=== PATIENT | female | born 1990 | race Caucasian/White ===

== ENCOUNTER 2018-02-27 10:11 | Emergency (ER) | payer OTHER, SELFPAY ==
[2018-02-27 10:12] VITALS: BP 127/74; PULSE 83; RESP 18; TEMP 36.6; O2SAT 100; BMI 20.3
--- NOTE | 2018-02-27 10:23 | NURSING ---
NO OLD EKGS
--- NOTE | 2018-02-27 10:28 | EKG12_ITS ---
Test Reason : CP Blood Pressure : / mmHG Vent. Rate : 070 BPM Atrial Rate : 070 BPM P-R Int : 126 ms QRS Dur : 094 ms QT Int : 402 ms P-R-T Axes : -06 103 029 degrees QTc Int : 434 ms Normal sinus rhythm Rightward axis Incomplete right bundle branch block Borderline ECG Confirmed by VINCE HERNANDEZ ([id number]), video editor BHAVIN BRADFORD ([id number]) on 03/02/2018 8:38:14 AM Referred By: ZOE Confirmed By:VINCE HERNANDEZ
--- NOTE | 2018-02-27 10:44 | ED.VISSUMM ---
- ER Visit Summary Date of Service: 02/27/18 Chief Complaint: Chest pain History of Present Illness: The patient is a 27 F who states that on Thursday she developed a quarter sized area on the right anterior upper chest that was very sore when she pushed on it. Now she states the pain is present even without pushing on it and seems to radiate into her right arm. She describes it as sharp with breathing otherwise an aching sensation. No known trauma. She states she has a treated pneumonia in the spring. Non-smoker. No recent surgeries or travel. Physical Examination: Afebrile vital signs are stable Gen: Well-nourished well-developed Head: Normocephalic atraumatic Eyes: Perrl EOMI ENT: TMs clear no rhinorrhea moist mucous membranes Neck: Supple no lymphadenopathy no JVD nontender CVS: Regular rate rhythm no murmurs normal S1-S2 Respiratory: No distress clear to auscultation bilaterally right anterior chest wall tenderness along the costochondral border Back: Nontender Extremity: Nontender no edema Skin: Normal color no rash Neuro: alert orientated ?3 CN II-XII intact normal strength sensation reflexes gait cerebellar Psych: Normal affect normal mood Test Results: EKG obtained shows a sinus rhythm at a rate of 70 with an incomplete right bundle jesse block. CBC BMP troponin d-dimer negative. HCG negative. Chest x-ray no acute findings. Emergency Department Course and Treatment: Toradol here. I believe this to be costochondritis and will continue anti-inflammatories at home. Return if worsening or concerns. Impression: 1. Costochondritis This note was generated with [employer] dictation software. It may contain incorrect words, spelling, and punctuation that were not noted in review of the chart prior to signing ED Disposition - Plan for ED Patient: Disposition: Home or Assisted Living Chief Complaint: Chest Pain Instructions: ED Chest Pain Costochondritis Prescriptions: Ketorolac [Toradol] 10 mg PO TID PRN PRN #15 tab PRN Reason: Pain Referrals: Chapo Pineda DO [Primary Care Provider] - 1 Week if not improving
--- NOTE | 2018-02-27 10:47 | ED.DCSUM_ITS ---
- ER Visit Summary Date of Service: 02/27/18 Chief Complaint: Chest pain History of Present Illness: The patient is a 27 F who states that on Thursday she developed a quarter sized area on the right anterior upper chest that was very sore when she pushed on it. Now she states the pain is present even with out pushing on it and seems to radiate into her right arm. She describes it as sharp with breathing otherwise an aching sensation. No known trauma. She states she has a treated pneumonia in the spring. Non-smoker. No recent surgeries or travel. Physical Examination: Afebrile vital signs are stable Gen: Well-nourished well-developed Head: Normocephalic atraumatic Eyes: Perrl EOMI ENT: TMs clear no rhinorrhea moist mucous membranes Neck: Supple no lymphadenopathy no JVD nontender CVS: Regular rate rhythm no murmurs normal S1-S2 Respiratory: No distress clear to auscultation bilaterally right anterior chest wall tenderness along the costochondral border Back: Nontender Extremity: Nontender no edema Skin: Normal color no rash Neuro: alert orientated ?3 CN II-XII intact normal strength sensation reflexes gait cerebellar Psych: Normal affect normal mood Test Results: EKG obtained shows a sinus rhythm at a rate of 70 with an incomplete right bundle jesse block. CBC BMP troponin d-dimer negative. HCG negative. Chest x-ray no acute findings. Emergency Department Course and Treatment: Toradol here. I believe this to be costochondritis and will continue anti-inflammatories at home. Return if worsening or concerns. Impression: 1. Costochondritis This note was generated with [employer] dictation software. It may contain incorrect words, spelling, and punctuation that were not noted in review of the chart prior to signing ED Disposition - Plan for ED Patient: Disposition: Home or Assisted Living Chief Complaint: Chest Pain Instructions: ED Chest Pain Costochondritis Prescriptions: Ketorolac [Toradol] 10 mg PO TID PRN PRN #15 tab PRN Reason: Pain Referrals: Chapo Pineda DO [Primary Care Provider] - 1 Week if not improving
[2018-02-27] MEDS: Ketorolac 15 MG/ML Vial IV (10:49)
--- NOTE | 2018-02-27 10:55 | RAD_ITS ---
STUDY: X-RAY CHEST REASON FOR EXAM: Female, 27 years old. Chest pain. TECHNIQUE: PA and lateral views of the chest. COMPARISON: Prior comparison studies are not available for review at this time. FINDINGS: The lungs are clear and expanded. There is no demonstrated pleural abnormality. Normal size heart. Normal mediastinum and remedios. Normal visualized pulmonary arteries. Normal visualized aortic arch and descending thoracic aorta. Normal visualized thoracic spine. Normal visualized ribs, clavicles, and shoulders. There is pectus carinatum of the sternum. There is no demonstrated abnormality of the visualized soft tissue structures of the upper abdomen. RAD/Chest PA and Lateral IMPRESSION: Normal x-ray examination of the chest. Electronically Signed: Elieser Couch MD at 11:14 EDT Tel , Service support ,
[2018-02-27 11:07] LABS: Absolute Lymphocyte Count 1.45 X10^3/ul (0.83-4.51); Absolute Neutrophil Count 3.3 X10^3/uL (2.0-7.7); Basophil# 0.03 X10^3/uL; Basophil% 0.6 % (0-1); Eosinophil# 0.16 X10^3/uL; Hematocrit 35.6 % (37-47); Hemoglobin 11.7 g/dl (12.0-15.0); Lymphocyte # 1.45 X10^3/ul (4.0); Lymphocyte % 26.8 % (19-41); Mean Corp Hgb Conc 32.9 g/gl (32-36); Mean Corpuscular Hgb 28.7 pg (27.0-32.0); Mean Corpuscular Volume 87.5 fL (81-99); Mean Platelet Vol. 9.2 fl (6.2-12.0); Monocyte# 0.45 X10^3/uL; Monocyte% 8.3 % (0-10); Neutrophil # 3.32 X10^3/uL (2.7-7.7); Neutrophil % 61.1 % (47-70); Platelet Count 193 K/mm3 (150-450); RBC Distribution Width CV 12.4 % (11.6-14.6); RBC Distribution Width SD 38.8 fl (35.1-43.9); Red Blood Count 4.07 M/mm3 (4.2-5.4); White Blood Count 5.4 K/mm3 (4.4-11.0)
[2018-02-27 11:08] LABS: POSITIVE COUNT NO; POSITIVE DIFFERENTIAL NO; POSITIVE MORPHOLOGY NO
[2018-02-27 11:16] LABS: Anion Gap 7 (5-15); BUN 19 mg/dL (7-18); BUN/Creat Ratio 29.4 RATIO (10-20); Calcium,Total 8.3 mg/dL (8.5-10.1); Chloride 109 mmol/L (98-107); Creatinine, Serum 0.65 mg/dL (0.55-1.02); EST Glomerular Filtration Rate 116 mL/min (>60); Est Glom Filt Rate - Afr Amer 140 mL/min (>60); Estimated Creatinine Clearance 106.11 ml/min; Glucose 83 mg/dL (74-106); Potassium 3.7 mmol/L (3.5-5.1); Sodium Level 141 mmol/L (136-145)
[2018-02-27 11:18] LABS: D-Dimer Quantitative (DVT/PE) < 0.27 FEU/ug/m (0.27-0.49)
[2018-02-27 11:19] LABS: Pregnancy, Serum, hCG Quali. NEGATIVE Negative (0-9 Nonpreg)
[2018-02-27 11:27] VITALS: PULSE 69; RESP 15; O2SAT 97
== END 2018-02-27 12:22 | disposition home or self-care (01) ==
PROVIDERS: Emergency Provider Emergency Medicine; Family Provider Family Medicine; PCP Family Medicine
DX: M94.0 Chondrocostal junction syndrome [Tietze] (principal); I45.10 Unspecified right bundle-branch block; Z87.01 Personal history of pneumonia (recurrent)
CPT/HCPCS: 71046; 80048; 84484; 84703; 85025; 85379; 93005; 96374; 99285; A4216

== ENCOUNTER → 2018-07-06 16:20 | Outpatient (CLI) | payer OTHER, SELFPAY ==
[2018-04-29 17:44] VITALS: BMI 20.3
[2018-07-06 17:25] LABS: Thyroid Stim Hormone (TSH) 1.31 uIU/mL (0.358-3.74)
== END ==
PROVIDERS: Family Provider Family Medicine; PCP Family Medicine; Referring Provider Nurse Practitioner Family; Visit Provider Nurse Practitioner Family
DX: R63.5 Abnormal weight gain (principal)
CPT/HCPCS: 36415; 84443

== ENCOUNTER → 2018-08-20 | Outpatient (CLI) | payer OTHER, SELFPAY ==
[2018-07-07 11:50] VITALS: BMI 20.3
--- NOTE | 2018-08-20 13:49 | CT_ITS ---
STUDY: CT ABDOMEN AND PELVIS WITH AND WITHOUT CONTRAST REASON FOR EXAM: Female, 28 years old. Microhematuria. RADIATION DOSAGE (If Supplied By Facility): CTDIvol = ( 9.50 ) mGy, DLP = ( 540.07 ) mGycm TECHNIQUE: Transaxial images were obtained from the dome of the diaphragm to the symphysis pubis without oral contrast. 100mL IV Isovue 300 was administered. Sagittal and coronal images were reconstructed. Individualized dose optimization techniques were used for this CT. COMPARISON: None. FINDINGS: The visualized lung bases are unremarkable. The visualized portions of the heart are within normal limits. Normal liver. Normal gallbladder and extrahepatic biliary system. Normal spleen. Normal pancreas. Normal bilateral adrenal glands. Normal right kidney. Normal left kidney. Normal visualized stomach. Normal small intestine. Normal colon. There is non-visualization of the appendix. Normal abdominal aorta. Normal inferior vena cava. Normal retroperitoneum. Normal urinary bladder. Normal visualized uterus. No free fluid in the abdomen or pelvis. There is a small umbilical hernia containing fat. Normal osseous structures. CT/CT Abd/Pelvis W/WO Contrast IMPRESSION: Normal unenhanced and enhanced CT of the abdomen and pelvis. Electronically Signed: Dante Solano MD at 10:28 EDT , Service support ,
== END | disposition home or self-care (01) ==
LOC: CT 13:47
PROVIDERS: Family Provider Family Medicine; PCP Family Medicine; Referring Provider Urology; Visit Provider Urology
DX: R31.29 Other microscopic hematuria (principal)
CPT/HCPCS: 74178; Q9967

== ENCOUNTER 2018-10-28 14:14 | Emergency (ER) | payer OTHER, SELFPAY ==
[2018-07-07 11:50] VITALS: BMI 20.3
[2018-10-28 14:15] VITALS: BP 125/74; PULSE 99; RESP 14; TEMP 36.9; O2SAT 98; BMI 21.4
[2018-10-28 14:20] VITALS: BP 125/74; PULSE 99; RESP 14; TEMP 36.9; O2SAT 98
--- NOTE | 2018-10-28 15:18 | CT_ITS ---
STUDY: CT BRAIN WITH AND WITHOUT CONTRAST REASON FOR EXAM: Female, 28 years old. Occipital headache for 2 months RADIATION DOSAGE (If Supplied By Facility): CTDIvol = ( 44.99 ) mGy, DLP = ( 1479.73 ) mGycm TECHNIQUE: Transaxial CT imaging of the brain was performed pre and post contrast administration. The examination was performed with intravenous administration of 50cc IV Isovue 370. Individualized dose optimization techniques were used for this CT. COMPARISON: None. FINDINGS: Normal soft tissue structures. Normal calvarium. Normal size ventricles and extra-axial spaces for the patient's age. Normal white matter tracts of the cerebral hemispheres. Normal basal ganglia and thalami. Normal brainstem. Normal cerebellum. There is no intracranial hemorrhage. There are no findings of an acute ischemic infarction. Normal visualized paranasal sinuses. CT/Brain/Head W/WO Contrast IMPRESSION: Normal unenhanced and enhanced CT scan of the brain. Electronically Signed: Bar Mota MD at 16:29 EDT , Service support ,
--- NOTE | 2018-10-28 15:20 | ED.VIS.HA ---
History of Present Illness Chief Complaint: Weakness Informant: Patient, Family Onset: Month(s) - 2 Context: Gradual, Onset Timing: Continuous, Waxes and wanes Quality: Negative for: Similar Prior Headaches Location: occipital w/ occasional discomfort in right high parietal area Current Severity: Moderate Maximum Severity: Severe Worsened by: nothing in particular Relieved by: nothing Associated Symptoms: Nausea, Sinus Pressure. Negative for: Fever, Vomiting, Sore Throat, Numbness, Tingling, Visual Changes, Blurred Vision, Photophobia, Visual Loss Injury: - - none Narrative: Patient started having headaches 2 months ago, no thunderclap's, everything gradual in onset. Headache is not gone away, but it does wax and wane. She states in the beginning she was having significant sinus congestion along with trouble breathing through her nose, and ear symptoms. She was put on an antibiotic and that improved but the headaches never went away. Gradually at some point after that, she developed vertiginous symptoms, she states when walking she is off balance, and when standing often she would feel a sensation of movement. Occasionally she gets very nauseated but she has not been vomiting. She saw her PCP 3 days ago who put her on Augmentin and told her to come back if it was not worse and they would do a CT scan. The next day she started having neck stiffness, her headache and neck felt worse today although she states this is not the worst her head is ever felt, it has been waxing and waning for the last couple months. She denies any injuries or obvious events coinciding with the onset. No known tick bites. No rashes. Prior similar symptoms: No Past Medical History - Allergies and Home Meds Allergies/Adverse Reactions: Allergies egg Allergy (Verified 10/28/18 14:18) Swelling honey Allergy (Verified 10/28/18 14:18) Swelling ibuprofen [From Motrin] Allergy (Verified 10/28/18 14:18) Hives brittny Primary Care Physician: Dilcia Fagan MD [Primary Care Provider] - Past Medical History: None Surgical History: no surgical history Lives: With Family Smoking Status: Never smoker Drugs: None - no hx IVDU - Family History family Family History: Family History (Last Reviewed 07/07/18 @ 11:50 by Xiomy Gooden) Other Cancer Heart disease Thyroid disorder Family History: Reports: - - no known hx of cerebral aneurysms Review of Systems General: Reports: - - no excessive fatigue. Denies: Chills, Fever, Sweats Eyes: Denies: Visual changes - bilaterally, Diplopia ENT: Reports: - - feels ears popping often. Denies: Rhinorrhea, Sore throat Cardiovascular: Denies: Chest pain, Palpitations Respiratory: Denies: Dyspnea, Cough, Dyspnea on exertion Gastrointestinal: Reports: Nausea. Denies: Abdominal pain, Vomiting, Diarrhea, Constipation, Melena, Hematochezia Genitourinary: Denies: Dysuria, Hematuria, Frequency Musculoskeletal: Reports: Neck pain - posterior sharp, mostly feels stiff. Denies: Myalgias, Arthralgias, Back pain, Swelling, Extremity Pain Skin: Denies: Rash, Abscess, Wounds Neurological: Reports: - - Arms and legs feel heavy today. Denies: Headache, Weakness, Parasthesia, Numbness Endocrine: Denies: Polyuria, Polydipsia, Heat intolerance, Cold intolerance Hematologic: Reports: Lymphadenopathy - my doctor said 3d ago that there was an enlarged lymph node somewhere in my neck Allergy: Denies: Uticaria, Swelling of the mouth, Swelling of the tongue Physical Exam Vital Signs/Narrative: Vital Signs Temp Pulse Resp BP Pulse Ox 10/28/18 14:20 98.5 F 99 14 125/74 H 98 10/28/18 14:15 98.5 F 99 14 125/74 H 98 Inital Vital Signs reviewed: Yes General: Well nourished, Well developed Head: NC, AT Eyes: Perrl - no photophobia, EOMI. Negative for: Scleral icterus ENT: Moist mucous membranes, No rhinorrhea, TM's clear. Negative for: Nasal congestion, Sinus tenderness Neck: Supple - w/ FROM, No Lymphadenopathy, No JVD, Nontender, No Meningismus Cardiovascular: Regular rate, Regular rhythm, No murmurs, Normal S1, Normal S2. Negative for: Tachycardia Respiratory: No distress, CTA bilaterally, Chest nontender Abdomen: Soft, Nontender, Nondistended, Normal bowel sounds. Negative for: Hepatomegaly, Splenomegaly Back: Nontender, Normal Inspection. Negative for: CVA tenderness Extremities: Nontender, No edema. Negative for: Calf Tenderness Skin: Normal color, No rash, No Trauma Neuro: Alert, Oriented x3, Cranial nerves II-XII grossly intact, Normal Strength, Normal Sensation, Normal DTR - x all 4 ext's, no clonus, toes downgoing bilat; no asymmetry., Normal Gait, - - Symptoms with Anastasiya-Hallpike maneuver only to left, not to right. No nystagmus with either and not at rest. Psychological: Normal affect, Normal Mood Diagnostic/Tx/Re-eval Impressions Brain CT 10/28/18 15:18 IMPRESSION: Normal unenhanced and enhanced CT scan of the brain. Electronically Signed: Bar Mota MD at 16:29 EDT , Service support , 10/28/18 15:18 CT Head [Brain/Head W/WO Contrast] [CT] Stat Laboratory Results 10/28/18 10/28/18 10/28/18 14:42 14:42 14:42 WBC 6.3 RBC 4.77 Hgb 13.5 Hct 40.1 MCV 84.1 MCH 28.3 MCHC 33.7 RDW 12.6 RDW Differential 38.4 Plt Count 234 MPV 9.8 Immature Gran % (Auto) 0.200 Neut % (Auto) 72.0 H Lymph % (Auto) 22.9 Cassia % (Auto) 4.0 Eos % (Auto) 0.6 Baso % (Auto) 0.3 Absolute Neuts (auto) 4.6 Absolute Lymphs (auto) 1.45 Total Counted Not Reportable Sodium 141 Potassium 4.5 Chloride 105 Carbon Dioxide 29.0 Anion Gap 7 BUN 17 Creatinine 0.85 Estim Creat Clear Calc 80.78 Est GFR (MDRD) Af Amer 102 Est GFR (MDRD) Non-Af 84 BUN/Creatinine Ratio 20.1 H Glucose 102 Calcium 9.5 Total Bilirubin 0.30 AST 20 ALT 17 Alkaline Phosphatase 45 Total Protein 8.1 Albumin 4.6 Globulin 3.5 Albumin/Globulin Ratio 1.3 Monoscreen Negative - Medical Decision Making Patient does not usually get headaches. I have no problem obtaining CT imaging, that was done with and without contrast, and was all normal. She is reassured. At this point, I do not think she needs the Augmentin, but I will empirically treat her with a course of doxycycline in case she has a few symptoms of a rickettsial infectious disease such as [place] spotted fever which has been documented as being present in [place] as well as Lyme disease. I think the chances of either 1 of these are relatively low but I do not think it is unreasonable to treat her empirically to see if it helps. She should follow-up. We discussed at length the likelihood that her vertigo is peripheral in nature, and the unlikelihood of acute infectious meningitis, and reasons why I do not recommend an emergent lumbar puncture at this time. She and family are comfortable with that and the overall plan and will follow-up. ED Disposition - Plan for ED Patient: Disposition: Home or Assisted Living Diagnosis: Cephalgia, Peripheral vertigo involving left ear Instructions: WEAKNESS, Unk Cause, HEADACHE, Unspecified, VERTIGO, Unspecified Prescriptions: Doxycycline Hyclate 1 cap PO BID #20 cap Transmission Status: Pending to [facility] Meclizine HCl 25 mg PO Q8H PRN #16 tab PRN Reason: Vertigo Transmission Status: Pending to [facility] Referrals: Dilcia Fagan MD [Primary Care Provider] - 3-5 Days Additional Instructions: DISCONTINUE AUGMENTIN. Take new prescription antibiotic instead.
[2018-10-28 15:31] VITALS: BP 114/70; PULSE 70; RESP 15; TEMP 36.9; O2SAT 97
[2018-10-28] MEDS: Metoclopramide 10 MG/2 ML Vial 5 MG IV (15:32)
[2018-10-28 15:38] LABS: Internal QC Validated? YES +Cl - CLEAR BKGD; Monotest Negative (Negative)
[2018-10-28 15:39] LABS: ALB/GLOB Ratio 1.3 RATIO (0.9-2.4); AST(SGOT) 20 U/L (15-37); Alanine Aminotransfer ALT/SGPT 17 U/L (13-56); Albumin, Serum 4.6 g/dL (3.2-5.0); Alkaline Phosphatase 45 U/L (45-117); Anion Gap 7 (5-15); BUN 17 mg/dL (7-18); BUN/Creat Ratio 20.1 RATIO (10-20); Calcium,Total 9.5 mg/dL (8.5-10.1); Chloride 105 mmol/L (98-107); Creatinine, Serum 0.85 mg/dL (0.55-1.02); EST Glomerular Filtration Rate 84 mL/min (>60); Est Glom Filt Rate - Afr Amer 102 mL/min (>60); Estimated Creatinine Clearance 80.78 ml/min; Globulin 3.5 g/dL (2.2-4.2); Glucose 102 mg/dL (74-106); Potassium 4.5 mmol/L (3.5-5.1); Protein, Total 8.1 g/dL (6.4-8.2); Sodium Level 141 mmol/L (136-145)
[2018-10-28 15:46] LABS: Absolute Lymphocyte Count 1.45 X10^3/ul (0.83-4.51); Absolute Neutrophil Count 4.6 X10^3/uL (2.0-7.7); Basophil# 0.02 X10^3/uL; Basophil% 0.3 % (0-1); Eosinophil# 0.04 X10^3/uL; Eosinophils% 0.6 % (0-5); Hematocrit 40.1 % (37-47); Hemoglobin 13.5 g/dl (12.0-15.0); Lymphocyte # 1.45 X10^3/ul (4.0); Lymphocyte % 22.9 % (19-41); Mean Corp Hgb Conc 33.7 g/gl (32-36); Mean Corpuscular Hgb 28.3 pg (27.0-32.0); Mean Corpuscular Volume 84.1 fL (81-99); Mean Platelet Vol. 9.8 fl (6.2-12.0); Monocyte# 0.25 X10^3/uL; Neutrophil # 4.55 X10^3/uL (2.7-7.7); Platelet Count 234 K/mm3 (150-450); RBC Distribution Width CV 12.6 % (11.6-14.6); RBC Distribution Width SD 38.4 fl (35.1-43.9); Red Blood Count 4.77 M/mm3 (4.2-5.4); White Blood Count 6.3 K/mm3 (4.4-11.0)
[2018-10-28 15:47] LABS: POSITIVE COUNT NO; POSITIVE DIFFERENTIAL NO; POSITIVE MORPHOLOGY NO
--- NOTE | 2018-10-28 16:10 | ED.RN ---
sepsis screen complete per dr. mack verbal order.
[2018-10-28 17:47] VITALS: BP 110/66; PULSE 70; RESP 15; O2SAT 97
== END 2018-10-28 17:48 | disposition home or self-care (01) ==
PROVIDERS: Emergency Provider Emergency Medicine; Family Provider Family Medicine; PCP Family Medicine
DX: R51 Headache (principal); H81.392 Other peripheral vertigo, left ear; R11.0 Nausea
CPT/HCPCS: 70470; 80053; 85025; 86308; 96361; 96374; 99284; J7030; Q9967; A4216

== ENCOUNTER → 2019-02-09 08:31 | Outpatient (CLI) | payer OTHER, SELFPAY ==
[2019-02-09 08:37] LABS: Bacteria 0 SEEN /hpf (None Seen); Mucous, Urine 0 SEEN /hpf (<or=2+); Red Blood Cells-Urine 0 SEEN /hpf (0-5); White Blood Cells 0 SEEN /hpf (0-5)
[2019-02-09 08:49] LABS: Color, Urine Yellow (Yellow); Glucose, Dipstick Normal (Normal); Ketone-Dipstick Negative (Negative); Leukocyte Esterase-Dipstick Negative /ul (Negative); Nitrite-Dipstick Negative (Negative); Occult Blood-Urine Negative /ul (Negative); Protein-Dipstick Negative (Negative); Urine Bilirubin Dipstick Negative (Negative); Urine Clarity Sl. Cloudy (Clear); Urine Urobilinogen Normal (Normal)
[2019-02-09 08:55] LABS: Squamous Epithelial Cells - UA 0-5 SEEN /hpf (5-10)
== END ==
PROVIDERS: Family Provider Family Medicine; PCP Family Medicine; Referring Provider Nurse Practitioner Family; Visit Provider Nurse Practitioner Family
DX: R30.0 Dysuria (principal)
CPT/HCPCS: 81001

== ENCOUNTER → 2019-02-11 15:36 | Outpatient (CLI) | payer OTHER, SELFPAY ==
[2019-02-11 18:12] LABS: Thyroid Stim Hormone (TSH) 0.77 uIU/mL (0.358-3.74)
== END ==
PROVIDERS: Family Provider Family Medicine; PCP Family Medicine; Visit Provider Family Medicine
DX: R00.2 Palpitations (principal)
CPT/HCPCS: 36415; 84443

== ENCOUNTER → 2019-02-17 13:02 | Outpatient (CLI) | payer OTHER, SELFPAY ==
[2019-02-17 14:15] LABS: Color, Urine Yellow (Yellow); Glucose, Dipstick Normal (Normal); Ketone-Dipstick Negative (Negative); Leukocyte Esterase-Dipstick Negative /ul (Negative); Nitrite-Dipstick Negative (Negative); Occult Blood-Urine 10 /ul (Negative); Protein-Dipstick Negative (Negative); Urine Bilirubin Dipstick Negative (Negative); Urine Clarity Clear (Clear); Urine Urobilinogen Normal (Normal)
== END ==
PROVIDERS: Family Provider Family Medicine; PCP Family Medicine; Referring Provider Obstetrics & Gynecology; Visit Provider Obstetrics & Gynecology
DX: R35.0 Frequency of micturition (principal)
CPT/HCPCS: 81002; 87086; 87088

== ENCOUNTER → 2019-03-16 08:46 | Outpatient (CLI) | payer OTHER, SELFPAY ==
--- NOTE | 2019-03-16 08:50 | RAD_ITS ---
STUDY: X-RAY - LUMBAR SPINE REASON FOR EXAM: Female, 28 years old. Pain, no history of injury. TECHNIQUE: 5 view(s) of the lumbar spine were obtained. COMPARISON: None FINDINGS: Normal lumbar lordosis. There is no substantial scoliosis. There is a normal alignment of the vertebrae. Normal vertebral bodies and endplates. Normal disc space heights. There is no demonstrated fracture. There is no demonstrated spondylolysis of the pars interarticulares. The soft tissue structures are unremarkable. RAD/L/S Spine Min 4 Views IMPRESSION: Normal x-ray examination of the lumbar spine. Electronically Signed: Maida Arguello MD at 0:28 EST , Service support ,
[2019-03-16 08:52] LABS: Lyme Ab Screen Interpretation REF LAB
[2019-03-16 10:35] LABS: Erythrocyte Sedimentation Rate 1 mm/hr (0-20)
[2019-03-16 10:44] LABS: Absolute Lymphocyte Count 1.34 X10^3/uL (0.83-4.51); Absolute Neutrophil Count 3.4 X10^3/uL (2.0-7.7); Basophil# 0.03 X10^3/uL; Basophil% 0.6 % (0-1); Eosinophil# 0.09 X10^3/uL; Eosinophils% 1.7 % (0-5); Hematocrit 41.2 % (37-47); Hemoglobin 13.3 g/dL (12.0-15.0); Lymphocyte # 1.34 X10^3/ul (4.0); Lymphocyte % 25.5 % (19-41); Mean Corp Hgb Conc 32.3 g/dL (32-36); Mean Corpuscular Hgb 28.1 pg (27.0-32.0); Mean Corpuscular Volume 86.9 fL (81-99); Mean Platelet Vol. 9.6 fl (6.2-12.0); Monocyte# 0.37 X10^3/uL; NRBC Flagged by Analyzer 0 % (0-5); Neutrophil # 3.42 X10^3/uL (2.7-7.7); Platelet Count 251 K/mm3 (150-450); RBC Distribution Width CV 12.2 % (11.6-14.6); RBC Distribution Width SD 38.6 fl (35.1-43.9); Red Blood Count 4.74 M/mm3 (4.2-5.4); White Blood Count 5.3 K/mm3 (4.4-11.0)
[2019-03-16 10:54] LABS: ALB/GLOB Ratio 1.2 RATIO (0.9-2.4); AST(SGOT) 17 U/L (15-37); Alanine Aminotransfer ALT/SGPT 18 U/L (13-56); Albumin, Serum 4.2 g/dL (3.2-5.0); Alkaline Phosphatase 40 U/L (45-117); Anion Gap 7 (5-15); BUN 16 mg/dL (7-18); BUN/Creat Ratio 20.6 RATIO (10-20); CRP < 2.90 mg/L (0.0-3.0); Calcium,Total 8.7 mg/dL (8.5-10.1); Chloride 107 mmol/L (98-107); Creatinine, Serum 0.78 mg/dL (0.55-1.02); EST Glomerular Filtration Rate 93 mL/min (>60); Est Glom Filt Rate - Afr Amer 113 mL/min (>60); Ferritin 28 ng/mL (8-252); Free T3 3.3 pg/mL (2.18-3.98); Globulin 3.6 g/dL (2.2-4.2); Glucose 88 mg/dL (74-106); Iron 105 ug/dL (50-170); Magnesium 2.4 mg/dL (1.6-2.6); Potassium 3.7 mmol/L (3.5-5.1); Protein, Total 7.8 g/dL (6.4-8.2); Sodium Level 140 mmol/L (136-145); T4 Free Direct 1.01 ng/dL (0.76-1.46); Uric Acid 3.7 mg/dL (2.6-6.0)
[2019-03-16 13:47] LABS: Vitamin B12 1276 pg/mL (211-911); Vitamin D,25 Hydroxy 33.1 ng/mL (29.95-100.01)
[2019-03-17 18:51] LABS: ANTINUCLEAR ANTIBODIES DIRECT Negative (Negative)
[2019-03-21 20:43] LABS: HLA B27 Negative (.); Lyme Scn Total Ab w/Rflx <0.91 ISR (0.00-0.90)
== END ==
PROVIDERS: Family Provider Family Medicine; PCP Family Medicine; Referring Provider Family Medicine; Visit Provider Family Medicine
DX: M54.9 Dorsalgia, unspecified (principal); R53.83 Other fatigue; M25.50 Pain in unspecified joint; R00.2 Palpitations
CPT/HCPCS: 36415; 72110; 80053; 81374; 82306; 82607; 82728; 83540; 83735; 84439; 84443; 84481; 84550; 85025; 85652; 86038; 86140; 86618

== ENCOUNTER → 2019-04-13 06:57 | Outpatient (CLI) | payer OTHER, SELFPAY | PROVIDERS: Family Provider Family Medicine; PCP Family Medicine; Referring Provider Family Medicine; Visit Provider Family Medicine | DX: R53.83 Other fatigue (principal) | CPT/HCPCS: 36415; 82533 ==

== ENCOUNTER → 2019-05-14 09:21 | Outpatient (CLI) | payer OTHER, SELFPAY ==
[2019-05-10 15:44] VITALS: BMI 22.0
[2019-05-19 16:11] LABS: Cortisol, Free 24Ur 13 ug/24 hr (6-42); Cortisol, Urinary Free 9 ug/L (Undefined)
== END ==
PROVIDERS: Family Provider Family Medicine; PCP Family Medicine; Referring Provider Internal Medicine Endocrinology, Diabetes & Metabolism; Visit Provider Internal Medicine Endocrinology, Diabetes & Metabolism
DX: E24.9 Cushing's syndrome, unspecified (principal)
CPT/HCPCS: 81050; 82530

== ENCOUNTER → 2019-06-01 15:47 | Outpatient (CLI) | payer OTHER, SELFPAY ==
[2019-05-27 09:24] VITALS: BMI 22.0
--- NOTE | 2019-06-01 15:51 | RAD_ITS ---
STUDY: X-RAY - LEFT KNEE REASON FOR EXAM: Female, 28 years old. PAIN X4 MONTHS, NKI TECHNIQUE: 4 view(s) of the knee. COMPARISON: None. FINDINGS: Normal visualized distal femur. Normal visualized proximal tibia and fibula. Normal proximal tibiofibular articulation. There is no demonstrated fracture. Normal medial femorotibial compartment. Normal lateral femorotibial compartment. Normal patellofemoral articulation. There is no demonstrated joint effusion. The soft tissue structures are unremarkable. RAD/Knee 4 or More Views IMPRESSION: Normal x-ray examination of the knee. Electronically Signed: Callum Lambert MD at 21:56 EST , Service support ,
--- NOTE | 2019-06-01 15:51 | RAD_ITS ---
STUDY: X-RAY - RIGHT KNEE REASON FOR EXAM: Female, 28 years old. PAIN X4 MONTHS, NKI TECHNIQUE: 4 view(s) of the knee. COMPARISON: None. FINDINGS: Normal visualized distal femur. Normal visualized proximal tibia and fibula. Normal proximal tibiofibular articulation. There is no demonstrated fracture. Normal medial femorotibial compartment. Normal lateral femorotibial compartment. Normal patellofemoral articulation. There is no demonstrated joint effusion. The soft tissue structures are unremarkable. RAD/Knee 4 or More Views IMPRESSION: Normal x-ray examination of the knee. Electronically Signed: Callum Lambert MD at 21:57 EST , Service support ,
== END ==
PROVIDERS: PCP Family Medicine; Referring Provider Family Medicine; Visit Provider Family Medicine
DX: M25.561 Pain in right knee (principal); M25.562 Pain in left knee
CPT/HCPCS: 73564

== ENCOUNTER → 2019-06-03 15:33 | Outpatient (CLI) | payer OTHER, SELFPAY ==
[2019-05-27 09:24] VITALS: BMI 22.0
[2019-06-03 17:10] LABS: Vitamin B12 572 pg/mL (211-911)
[2019-06-06 20:08] LABS: Endomysial Antibody IgA Negative (Negative)
[2019-06-06 21:08] LABS: Deamidated Gliadin IgA 4 units (0-19); Deamidated Gliadin IgG 2 units (0-19); Immunoglobulin A 261 mg/dL (87-352); t-Transglutaminase IgA <2 U/mL (0-3)
[2019-06-07 20:07] LABS: Beef <0.10 kU/L (Class 0); Corn <0.10 kU/L (Class 0); Egg, Whole 1.12 kU/L (Class II); Milk (Cow) <0.10 kU/L (Class 0); Peanut <0.10 kU/L (Class 0); Pork <0.10 kU/L (Class 0); Soybean <0.10 kU/L (Class 0); Wheat <0.10 kU/L (Class 0)
[2019-06-08 14:01] LABS: Chocolate <0.10 kU/L (Class 0)
== END ==
PROVIDERS: PCP Family Medicine; Referring Provider Family Medicine; Visit Provider Family Medicine
DX: R53.83 Other fatigue (principal)
CPT/HCPCS: 36415; 82607; 82784; 83516; 86003; 86005; 86255

== ENCOUNTER → 2019-06-30 14:17 | Outpatient (CLI) | payer OTHER, SELFPAY ==
[2019-05-27 09:24] VITALS: BMI 22.0
[2019-06-30 16:20] LABS: Absolute Lymphocyte Count 1.29 X10^3/uL (0.83-4.51); Absolute Neutrophil Count 2.5 X10^3/uL (2.0-7.7); Basophil# 0.02 X10^3/uL; Basophil% 0.5 % (0-1); Eosinophil# 0.06 X10^3/uL; Eosinophils% 1.4 % (0-5); Hematocrit 38.3 % (37-47); Hemoglobin 12.3 g/dL (12.0-15.0); Lymphocyte # 1.29 X10^3/ul (4.0); Lymphocyte % 30.4 % (19-41); Mean Corp Hgb Conc 32.1 g/dL (32-36); Mean Corpuscular Hgb 27.8 pg (27.0-32.0); Mean Corpuscular Volume 86.5 fL (81-99); Mean Platelet Vol. 9.9 fl (6.2-12.0); Monocyte# 0.37 X10^3/uL; Monocyte% 8.7 % (0-10); NRBC Flagged by Analyzer 0 % (0-5); Neutrophil % 58.8 % (47-70); Platelet Count 247 K/mm3 (150-450); RBC Distribution Width CV 12.4 % (11.6-14.6); Red Blood Count 4.43 M/mm3 (4.2-5.4); White Blood Count 4.3 K/mm3 (4.4-11.0)
[2019-06-30 16:24] LABS: Erythrocyte Sedimentation Rate 3 mm/hr (0-20)
[2019-06-30 16:28] LABS: ALB/GLOB Ratio 1.3 RATIO (0.9-2.4); AST(SGOT) 18 U/L (15-37); Alanine Aminotransfer ALT/SGPT 18 U/L (13-56); Albumin, Serum 4.2 g/dL (3.2-5.0); Alkaline Phosphatase 43 U/L (45-117); Anion Gap 4 (5-15); BUN 18 mg/dL (7-18); CRP < 2.90 mg/L (0.0-3.0); Calcium,Total 8.6 mg/dL (8.5-10.1); Chloride 108 mmol/L (98-107); Creatinine, Serum 0.72 mg/dL (0.55-1.02); EST Glomerular Filtration Rate 101 mL/min (>60); Est Glom Filt Rate - Afr Amer 122 mL/min (>60); Globulin 3.3 g/dL (2.2-4.2); Glucose 79 mg/dL (74-106); Potassium 3.9 mmol/L (3.5-5.1); Protein, Total 7.5 g/dL (6.4-8.2); Sodium Level 140 mmol/L (136-145)
== END ==
PROVIDERS: PCP Family Medicine; Referring Provider Family Medicine; Visit Provider Family Medicine
DX: R10.9 Unspecified abdominal pain (principal)
CPT/HCPCS: 36415; 80053; 85025; 85652; 86140

== ENCOUNTER → 2019-08-24 08:54 | Outpatient (CLI) | payer OTHER, SELFPAY ==
[2019-05-27 09:24] VITALS: BMI 22.0
--- NOTE | 2019-08-24 10:23 | NEURO ---
NCS and/or EMG Patient Report Ordering Doctor: Peterson Corado DATE OF SERVICE: 08/24/19 Hattie Contreras is a 29-year-old female presents for electrodiagnostic testing of the lower limbs. She reports of weakness around the knees. She denies any numbness or tingling. Electrodiagnostic findings: Peroneal motor nerve demonstrates normal distal latency, amplitude and conduction velocity bilaterally. Normal tibial motor response bilaterally. Normal tibial and peroneal F waves. H reflex within normal limits. Sensory responses are normal. On needle EMG, all muscles tested in the lower limb showed no evidence of denervation with normal motor unit action potentials. Electrodiagnostic impression: This is a normal electrodiagnostic study in the lower limbs. There is no electrodiagnostic evidence for peripheral neuropathy or lumbosacral radiculopathy. If there are any further questions, please do not hesitate to contact me.
== END ==
PROVIDERS: PCP Family Medicine; Referring Provider Family Medicine; Visit Provider Family Medicine
DX: G62.9 Polyneuropathy, unspecified (principal); R53.1 Weakness
CPT/HCPCS: 95886; 95912

== ENCOUNTER → 2020-02-25 09:02 | Outpatient (CLI) | payer OTHER, SELFPAY ==
[2019-05-27 09:24] VITALS: BMI 22.0
[2020-02-25 10:19] LABS: hCG Titer Quant., Serum 2578 mIU/mL (1-3)
== END ==
PROVIDERS: PCP Family Medicine; Referring Provider Obstetrics & Gynecology; Visit Provider Obstetrics & Gynecology
DX: O20.0 Threatened abortion (principal); Z3A.00 Weeks of gestation of pregnancy not specified
CPT/HCPCS: 36415; 84702

== ENCOUNTER → 2020-02-26 15:15 | Outpatient (CLI) | payer OTHER, SELFPAY ==
[2019-05-27 09:24] VITALS: BMI 22.0
[2020-02-26 16:14] LABS: hCG Titer Quant., Serum 2577 mIU/mL (1-3)
== END ==
PROVIDERS: PCP Family Medicine; Visit Provider Obstetrics & Gynecology
DX: O20.0 Threatened abortion (principal); Z3A.00 Weeks of gestation of pregnancy not specified
CPT/HCPCS: 84702

== ENCOUNTER → 2020-05-12 08:59 | Outpatient (CLI) | payer OTHER, SELFPAY ==
[2020-05-05 13:45] VITALS: BMI 22.6
[2020-05-12 09:51] LABS: Hemoglobin 11.7 g/dL (12.0-15.0); Mean Corp Hgb Conc 34.4 g/dL (32-36); Mean Corpuscular Volume 84.4 fL (81-99); Mean Platelet Vol. 9.9 fl (6.2-12.0); Platelet Count 246 K/mm3 (150-450); RBC Distribution Width SD 36.3 fl (35.1-43.9); Red Blood Count 4.03 M/mm3 (4.2-5.4); White Blood Count 4.6 K/mm3 (4.4-11.0)
[2020-05-12 11:48] LABS: HIV - WCH Non-Reactive (Nonreactive); Hepatitis B Surface Antigen Non-Reactive (Nonreactive); Hepatitis C Antibody Non-Reactive (Nonreactive); Rubella IgG Reactive (Nonreactive)
[2020-05-17 01:27] LABS: Rapid Plasmin Reagin (RPR) NONREACTIVE (NONREACTIVE)
== END ==
PROVIDERS: PCP Family Medicine; Referring Provider Obstetrics & Gynecology; Visit Provider Obstetrics & Gynecology
DX: Z34.90 Encounter for supervision of normal pregnancy, unspecified, unspecified trimester (principal)
CPT/HCPCS: 36415; 85027; 86592; 86703; 86762; 86803; 86850; 86870; 86900; 86901; 87340

== ENCOUNTER 2020-09-06 13:20 | Outpatient (CLI) | payer OTHER, SELFPAY ==
[2020-05-05 13:45] VITALS: BMI 22.6
[2020-09-06 13:37] VITALS: TEMP 37.3
[2020-09-06 13:39] VITALS: BP 98/56; PULSE 72
[2020-09-06 14:39] VITALS: BMI 27.2
[2020-09-06 16:34] LABS: Hematocrit 31.2 % (37-47); Hemoglobin 10.5 g/dL (12.0-15.0); Mean Corp Hgb Conc 33.7 g/dL (32-36); Mean Corpuscular Hgb 29.7 pg (27.0-32.0); Mean Corpuscular Volume 88.4 fL (81-99); Mean Platelet Vol. 9.3 fl (6.2-12.0); Platelet Count 228 K/mm3 (150-450); RBC Distribution Width CV 12.2 % (11.6-14.6); RBC Distribution Width SD 39.1 fl (35.1-43.9); Red Blood Count 3.53 M/mm3 (4.2-5.4); White Blood Count 5.7 K/mm3 (4.4-11.0)
[2020-09-06 16:43] LABS: Fibrinogen 499 mg/dl (203-444)
[2020-09-06] MEDS: Acetaminophen 500 MG Tablet 1000 MG PO (17:03)
--- NOTE | 2020-09-06 19:08 | OB.TRI.HP_ITS ---
HPI - General HPI Narrative TERRANCE MARCUS, is a 30 F who presents to triage after falling at home. She was walking out of house and tripped on flower box. She fell down one step but caught herself. She fell on her side. Denies any cramping but feels like she pulled some muscles. Patient had previous C/S and stated she feels sore where her scar is on stomach. Denies any vaginal bleeding and stated has positive movement. [facility] Medical History (Updated 09/06/20 @ 19:22 by June Norwood CNM) Hernia History of pre-term labor Home Medications 1 tab PO/SL DAILY 09/06/20 [History Last Taken 09/06/20 08:00] aspirin [Aspir-81] 81 mg PO DAILY 09/06/20 [History Last Taken 09/06/20 08:00] Allergy/AdvReac Type Severity Reaction Status Date / Time egg Allergy Swelling Verified 09/06/20 14:07 honey Allergy Swelling Verified 09/06/20 14:07 ibuprofen [From Motrin] Allergy Hives Verified 09/06/20 14:07 Family History Other Cancer Heart disease Thyroid disorder Surgical History Hx of section Social History Smoking Status: Never smoker alcohol intake: never substance use type: does not use what type of physical activity do you participate in: aerobics and weight training History Elective abortions Hx Para 2 Spontaneous abortions Hx # Term Pregnancies Ectopic pregnancies Hx # Pregnancies Multiple births # of living children ROS Eyes Eyes: Denies blurry vision Cardiovascular Cardiovascular: Reports none; Denies chest pain at rest, chest pain with activity or dizziness Respiratory/Chest Respiratory/Chest: Denies cough or dyspnea Gastrointestinal Gastrointestinal: Reports none and other; Denies diarrhea or vomiting Genitourinary Genitourinary: Denies dysuria Musculoskeletal Musculoskeletal: Reports none Integumentary Integumentary: Reports none; Denies rash Neurologic Neurologic: Denies dizziness, headache(s) or other visual disturbances Psychiatric Psychiatric: Reports none Physical Exam Const alert and no apparent distress General Appearance: cooperative Orientation / Consciousness: awake Exam Limitations: no limitations HEENT normocephalic Eyes General Eye: normal appearance of both eyes Neck full ROM Chest inspection of chest normal Resp normal respiratory effort and normal air movement Effort and Inspection: symmetric chest movement Auscultation: clear to auscultation bilaterally Cardio regular rate GI soft to palpation, non-tender and non-distended Inspection: and other Back/Spine normal ROM Extremity full ROM, normal capillary refill and no calf tenderness Skin no rashes or lesions noted Neuro oriented x3 and CN's II-XII intact bilaterally Psych mental status grossly normal NST FHR Rate Baby A Baseline: 145 Variability:: Moderate Accelerations:: 10 x 10 Decelerations:: None NST Reactive:: Appropriate for gestational age FHR Category:: Category I Uterine Activity:: None noted Assessment & Plan Assessment/Plan (1) Fall: QUALIFIERS: Encounter type: initial encounter Qualified Code(s): W19.XXXA - Unspecified fall, initial encounter PLAN: CEFM x 4 hours CBC, Fibrinogen, Rhogam work-up, KB Tylenol 1000 mg PO x [address] Dykes notified and is collaborating physician
[2020-09-08 13:48] LABS: Kleihauer-Betke Negative
== END 2020-09-06 17:30 | disposition home or self-care (01) ==
LOC: WPOUT 13:51 → WP 13:52
PROVIDERS: Referring Provider Advanced Practice Midwife; Visit Provider Advanced Practice Midwife
DX: O9A.219 Injury, poisoning and certain other consequences of external causes complicating pregnancy, unspecified trimester (principal); W10.9XXA Fall (on) (from) unspecified stairs and steps, initial encounter; Y93.01 Activity, walking, marching and hiking; Y92.009 Unspecified place in unspecified non-institutional (private) residence as the place of occurrence of the external cause; Y99.9 Unspecified external cause status; O34.219 Maternal care for unspecified type scar from previous cesarean delivery; Z3A.00 Weeks of gestation of pregnancy not specified; Z79.82 Long term (current) use of aspirin
CPT/HCPCS: 36415; 59025; 59050; 85027; 85384; 85460; 86900; 86901; 90384; 99218; G0378; J2790

== ENCOUNTER → 2020-09-27 11:55 | Outpatient (CLI) | payer OTHER, SELFPAY ==
[2020-09-06 14:39] VITALS: BMI 27.2
[2020-09-27 12:26] LABS: Absolute Lymphocyte Count 1.33 X10^3/uL (0.83-4.51); Absolute Neutrophil Count 4.4 X10^3/uL (2.0-7.7); Basophil# 0.02 X10^3/uL; Basophil% 0.3 % (0-1); Eosinophil# 0.11 X10^3/uL; Eosinophils% 1.7 % (0-5); Hematocrit 32.8 % (37-47); Hemoglobin 10.6 g/dL (12.0-15.0); Lymphocyte # 1.33 X10^3/ul (0.83-4.51); Lymphocyte % 20.8 % (19-41); Mean Corp Hgb Conc 32.3 g/dL (32-36); Mean Corpuscular Hgb 28.6 pg (27.0-32.0); Mean Corpuscular Volume 88.4 fL (81-99); Mean Platelet Vol. 9.4 fl (6.2-12.0); Monocyte# 0.44 X10^3/uL; Monocyte% 6.9 % (0-10); NRBC Flagged by Analyzer 0 % (0-5); Neutrophil # 4.44 X10^3/uL (2.7-7.7); Neutrophil % 69.7 % (47-70); Platelet Count 239 K/mm3 (150-450); RBC Distribution Width CV 11.9 % (11.6-14.6); Red Blood Count 3.71 M/mm3 (4.2-5.4); White Blood Count 6.4 K/mm3 (4.4-11.0)
[2020-09-27 13:00] LABS: Glucose Challenge Gest 1H 50g 81 mg/dL (70-140)
[2020-09-27 13:22] LABS: Syphilis Antibodies Non-reactive
== END ==
PROVIDERS: PCP Family Medicine; Referring Provider Obstetrics & Gynecology; Visit Provider Obstetrics & Gynecology
DX: Z34.92 Encounter for supervision of normal pregnancy, unspecified, second trimester (principal); Z3A.28 28 weeks gestation of pregnancy
CPT/HCPCS: 36415; 82950; 85025; 86780; 86850; 86870; 86900; 86901

== ENCOUNTER 2020-11-26 10:15 | Outpatient (CLI) | payer OTHER, SELFPAY ==
--- NOTE | 2020-11-26 11:31 | PCM.HP.BLA ---
History and Physical Date of Admission: 12/11/20 HPI: The patient is a 30 year old female presenting for pre-operative visit. She is scheduled for and tubal sterilization, for 39 weeks and sterilization request on 12/11/2020. Procedure discussed along with risks, benefits and complications. Other alternatives discussed for management. Consent form signed? Yes. ? ? PAST MEDICAL HISTORY PAST MEDICAL HISTORY Diagnosis Date ? Anemia ? ? History of pre-eclampsia in prior , currently ? ? Infectious mononucleosis ? ? Infertility, female ? ? ? PAST SURGICAL HISTORY PAST SURGICAL HISTORY Procedure Laterality Date ? ANESTH, SECTION ? ? ? DELIVERY ONLY ? 02/2014 ? LTCS, twins ? DELIVERY ONLY ? 12/29/2016 ? ? ? CURRENT MEDICATIONS Current Outpatient Medications Medication Sig Dispense Refill ? aspirin, enteric coated (ASPIRIN, ENTERIC COATED) 81 mg EC tablet Take 81 mg by mouth once daily. ? ? ? Ivsoxevr-Vz-Dkk-Fe-FA ( VITAMIN) tab Take 1 tablet by mouth. ? ? ? No current facility-administered medications for this visit. ? ? ALLERGIES: Eggs [Egg], Honey, and Motrin [Ibuprofen] ? PERSONAL HISTORY: SOCIAL HISTORY Social History ? Tobacco Use ? Smoking status: Never Smoker ? Smokeless tobacco: Never Used Vaping Use ? Vaping Use: Never used Substance Use Topics ? Alcohol use: No ? Drug use: No ? FAMILY HISTORY: FAMILY HISTORY FAMILY HISTORY Problem Relation Age of Onset ? No Known Problems Mother ? ? COPD Father ? ? No Known Problems Sister ? ? Thyroid Maternal Grandmother ? ? Osteoporosis Maternal Grandmother ? ? Diabetes Maternal Grandfather ? ? Type 2 ? Heart Paternal Grandmother ? ? Heart Paternal Grandfather ? ? [place] ? Breast Cancer Paternal Aunt ? ? Breast Cancer Paternal Aunt ? ? No Known Problems Brother ? ? Breast Cancer Other ? ? cousin ? No Known Problems Daughter ? ? No Known Problems Daughter ? ? No Known Problems Daughter ? ? ? REVIEW OF SYMPTOMS: GENERAL: denies fevers or chills ENDOCRINOLOGY: has not been on steroids Cardiology : denies palpitations or chest pain Respiratory: denies SOB or cough Hematology: denies history of prolonged bleeding or easy bruising or VTE Allergy: Denies history of personal or family history of allergy to anesthesia ? PHYSICAL EXAMINATION: ? VITALS: Last menstrual period 03/13/2020, unknown if currently . ? GENERAL: The patient is well nourished, well hydrated in no acute distress. , The patient is oriented to time, place, and person. NECK: Supple. No lynphadenopathy, normal thyroid, no thyromegaly. LUNGS: Clear to auscultation bilaterally. no wheezes, rhonchi or rales HEART: Regular rate and rhythm, Normal heart sounds and No murmurs or gallops abd- soft, nontender, gravid, appropriate for gestational age fundal size ? IMPRESSION: Estimated Date of Delivery: 12/18/20 ? PLAN: repeat c/s, bilateral salpingectomy ? I have reviewed and updated past medical and surgical history, medications and allergies. This H&P was completed in my office on 11/26/20. Assessment & Plan Assessment/Plan (1) Sterilization: (2) Previous delivery affecting : (3) 39 weeks gestation of :
--- NOTE | 2020-11-26 12:40 | NURSING ---
Pt here to Type and screen blood draw and Rhogam.
== END 2020-11-26 11:40 | disposition home or self-care (01) ==
LOC: WPOUT 10:22 → WP 10:23
PROVIDERS: PCP Family Medicine; Visit Provider Obstetrics & Gynecology
DX: O09.293 Supervision of pregnancy with other poor reproductive or obstetric history, third trimester (principal); O34.211 Maternal care for low transverse scar from previous cesarean delivery; Z79.82 Long term (current) use of aspirin; Z3A.39 39 weeks gestation of pregnancy
CPT/HCPCS: 96372; 86900; 86901; 90384; 99218; G0378; J2790

== ENCOUNTER 2020-12-11 09:20 | Inpatient (IN) | payer OTHER, SELFPAY ==
[2020-05-05 13:45] VITALS: BMI 22.6
[2020-12-11] VITALS (16 sets, daily range): BP systolic 99–117; BP diastolic 47–71; PULSE 70–92; RESP 15–20; TEMP 35.9–37.1; O2SAT 97–100; BMI 30.5
[2020-12-11] MEDS: Lactated Ringers 1,000 ML 999 ML IV (09:45)
[2020-12-11 09:57] LABS: Absolute Lymphocyte Count 1.75 X10^3/uL (0.83-4.51); Absolute Neutrophil Count 4.1 X10^3/uL (2.0-7.7); Basophil# 0.02 X10^3/uL; Basophil% 0.3 % (0-1); Eosinophil# 0.14 X10^3/uL; Eosinophils% 2.2 % (0-5); Hematocrit 35.3 % (37-47); Hemoglobin 11.4 g/dL (12.0-15.0); Lymphocyte # 1.75 X10^3/ul (0.83-4.51); Lymphocyte % 27.5 % (19-41); Mean Corp Hgb Conc 32.3 g/dL (32-36); Mean Corpuscular Hgb 27.3 pg (27.0-32.0); Mean Corpuscular Volume 84.7 fL (81-99); Mean Platelet Vol. 11.1 fl (6.2-12.0); Monocyte# 0.33 X10^3/uL; Monocyte% 5.2 % (0-10); NRBC Flagged by Analyzer 0 % (0-5); Neutrophil % 64.3 % (47-70); Platelet Count 208 K/mm3 (150-450); RBC Distribution Width CV 13.2 % (11.6-14.6); RBC Distribution Width SD 40.6 fl (35.1-43.9); Red Blood Count 4.17 M/mm3 (4.2-5.4); White Blood Count 6.4 K/mm3 (4.4-11.0)
[2020-12-11] MEDS: Acetaminophen 500 MG Tablet 1000 MG PO ×3 (10:11→22:31)
[2020-12-11] MEDS: Lactated Ringers 1,000 ML 150 ML IV (10:42)
[2020-12-11] MEDS: Sodium Citrate/Citric Acid 30 ML UDC PO (12:23)
[2020-12-11] MEDS: Cefazolin 2 GM in 0.9% Normal Saline 100 ML IV (12:28)
--- NOTE | 2020-12-11 12:41 | PCM.HP.OB ---
HPI - General General Date of Admission: 12/11/20 HPI Narrative TERRANCE MARCUS, is a 30-year-old multigravida for repeat section with EDC of 12/18/2020 confirmed by first trimester ultrasound. She has had some irregular contractions. No vaginal bleeding or leaking of fluid. Maternal Data Information Final KANIKA: 12/18/20 Final KANIKA Source: LMP Gestational age: 39 PFSH PFSH Medical History Hernia History of pre-term labor Pre-eclampsia Home Medications 1 tab PO/SL DAILY 09/06/20 [History Last Taken 12/10/20 08:00] aspirin [Aspir-81] 81 mg PO DAILY 09/06/20 [History Last Taken 12/09/20 08:00] famotidine [Pepcid] 20 mg PO DAILY 12/11/20 [History Last Taken 12/10/20 08:00] ferrous sulfate [iron] 325 mg PO DAILY 12/11/20 [History Last Taken 12/10/20 08:00] Allergy/AdvReac Type Severity Reaction Status Date / Time egg Allergy Swelling Verified 09/06/20 14:07 honey Allergy Swelling Verified 09/06/20 14:07 ibuprofen [From Motrin] Allergy Hives Verified 09/06/20 14:07 Family History Other Cancer Heart disease Thyroid disorder Surgical History Hx of section Social History Smoking Status: Never smoker alcohol intake: never substance use type: does not use what type of physical activity do you participate in: aerobics and weight training History Elective abortions Hx Para 3 Spontaneous abortions Hx # Term Pregnancies Ectopic pregnancies Hx # Pregnancies Multiple births # of living children ROS Constitutional Constitutional: Denies fatigue, fever(s) or malaise Eyes Eyes: Denies change in vision ENT HEENT: Denies dizziness or headache(s) Cardiovascular Cardiovascular: Denies chest pain, dyspnea or lightheadedness Respiratory/Chest Respiratory/Chest: Denies cough or dyspnea Gastrointestinal Gastrointestinal: Denies change in bowel habits Genitourinary Genitourinary: Denies burning urination or genital lesions Integumentary Integumentary: Denies rash Neurologic Neurologic: Denies confusion, dizziness, headache(s), numbness or weakness Vital Signs Vital Signs Vital Signs: 12/11/20 10:27 Temperature 98.7 F Temperature Source Temporal Pulse Rate 86 Respiratory Rate 16 Blood Pressure 104/65 Blood Pressure Mean 78 Blood Pressure Source Monitor Blood Pressure Position Semi-Fowlers Blood Pressure Location Left Arm Pulse Ox 99 Oxygen Delivery Method Room Air Weight Weight: 78.2 kg Body Mass Index (BMI) 30.5 Physical Exam Const alert and no apparent distress General Appearance: cooperative HEENT normocephalic Resp normal respiratory effort Cardio regular rate GI soft to palpation GI Narrative: gravid, nontender, appropriate for gestational age Extremity no calf tenderness General Extremity: edema Skin no wounds Rashes: No rashes noted Psych activity/motor behavior normal Labs Labs Labs: Blood Type A NEGATIVE Antibody Screen POSITIVE H Hct 35.3 % (37-47) L Hgb 11.4 g/dL (12.0-15.0) L Syphilis Total Ab Non-reactive VZV IgG Antibody 858 index (Immune >165) Rubella IgG Antibody Reactive (Nonreactive) Hep Bs Antigen Non-Reactive (Nonreactive) Neisseria gonorrhoeae DNA (HECTOR) Negative (Negative) HIV 1&2 Antibody Non-Reactive (Nonreactive) Glucose 1 Hr 50 gm 81 mg/dL (70-140) Group B Strep DNA POSITIVE (Negative) H Rhogam given: Yes Assessment & Plan (1) Previous delivery affecting : PLAN: Risk benefits and alternatives to repeat section of been discussed with the patient, questions were answered to her satisfaction she desires to proceed. She desires permanent sterilization with either bilateral fallopian tube occlusion of the fallopian tubes or, if anatomy allows, bilateral salpingectomy. She understands is permanent, irreversible risk of failure and regret. (2) 39 weeks gestation of : (3) Sterilization:
--- NOTE | 2020-12-11 13:41 | EX.PCM.OBRPT ---
Assessment & Plan (1) Sterilization: (2) Previous delivery affecting : (3) 39 weeks gestation of : (4) Delivery outcome of liveborn infant: Maternal Data Information Final KANIKA: 12/18/20 Gestational age: 39 0/7 Details Operative Information Date of Procedure: 12/11/20 Pre-Operative Diagnosis: 39weeks, previous c/s, sterilization request Post-Operative Diagnosis: same Classification: Scheduled Procedure Type: low transverse (with bilateral salpingectomy) executive director #1: Hayes Shelton Type of Anesthesia: Spinal Anesthesiologist: Hilda Tyson Special Medications: duramorph Antibiotic Given: Ancef 2 grams IV x1 Drain: Jaffe to straight drain Estimated Blood Loss: 800 Fluids Replaced: 1000 Procedure Start Time: 12:53 Procedure Stop Time: 13:48 Time of Delivery: 12:59 Findings Description of Procedure: The patient was taken to the operating room. She was prepped and draped in the dorsal supine position with a leftward tilt. A Pfannenstiel skin incision was made approximately 2 cm above the symphysis pubis and carried through to underlying layer fascia with the scalpel. The fascia was incised incised in the midline and extended laterally with the Burks scissors. The fascia was dissected off the rectus muscles with blunt and sharp dissection. The rectus muscles densely adhered to the fascia and the peritoneum. I was able to find the midline and use the Burks scissors to separate them. I was then able to finally find a clear spot of peritoneum and tented up between two hemostats and entered it with the Metzenbaum scissors. There were dense adhesions of the uterus to the abdominal wall. I had to go in the midportion of the uterus to find a clear spot. I did dissect the uterus off the anterior abdominal wall with Bovie cauterization in order to form enough clear space to make the uterine incision. I had to partially transect the left rectus muscle approximately 1-1/2 cm in order to make enough room to deliver the fetus because of the dense adhesions, there was not much stretch to the incision. The uterine incision transversely but it was more in the midportion of the uterus. The amniotic membranes were ruptured bluntly and clear fluid returned. The uterine incision was stretched bluntly. The 's head was brought to the incision in the flexed position and delivered without difficulty. The remainder of the was delivered with gentle traction and fundal pressure in the standard fashion. The mouth and nares were bulb suctioned. The cord was clamped and cut as the was stimulated. Cord clamping was not delayed since it took 6 minutes to get to the hysterotomy. The was handed off to the waiting nursing staff and was crying as it was handed off. The placenta was delivered with fundal massage and gentle traction in the standard fashion. The uterus was exteriorized and cleared of all clots and debris. The cervix was dilated with a ring forcep. The uterine incision was closed with #1 Vicryl in a running locked fashion. A second layer of the same suture was used in an imbricating fashion. Due to dissecting the uterus off the anterior abdominal wall, there was a defect above the uterine incision. This was closed with #1 Monocryl suture in a running locked fashion. Several other [id number] sutures were needed to obtain hemostasis. There is still some generalized oozing and a Bovie was used to help cauterize this. I then placed Juan Diego over the incision. The left fallopian tube was identified and was very adherent to the left ovary. There were also large blood vessels. Decision was made to transect most of the tube but a small amount of fimbriated end was still left attached to the ovary. The LigaSure device was used to clamp, seal and transect the fallopian tube away from the uterus. It was then used to clamp, ligate and transect the antimesenteric portion of the tube. The tube was then transected off near the ovarian adhesions. The site was hemostatic. The right fallopian tube was identified and followed out to fimbriated end. The entire tube was clamped, sealed and transected from the uterus with the LigaSure device and the pedicles were hemostatic. The uterus was placed back into the peritoneal cavity and major hemostasis was obtained but there was still a small amount of oozing from some of the peritoneal surfaces. The rectus muscles were examined and any bleeding was Bovie cauterized. The parietal peritoneum and rectus muscles were closed with horizontal mattress sutures in a running interrupted fashion with with #1 Vicryl suture.. The surgical teams outer gloves were then changed. The rectus fascia was examined and any bleeding was Bovie cauterized and the rectus fascia was closed with 1 Vicryl suture in a running standard fashion. The subcutaneous tissue was examining and any bleeding was Bovie cauterized. The subcutaneous tissue was reapproximated with 3-0 Vicryl suture. The skin was closed in a subcuticular fashion by the MULTI SHARE PROGRAM COORDINATOR with me present in the labor and delivery suite. I performed the remainder of the procedure with assistance. All sponge, lap, and needle counts were correct. The patient was taken to her room for recovery in a stable condition. Specimen: Bilateral fallopian tubes Presentation: Positive for Vertex Amniotic Membrane Rupture Type: Spontaneous Amniotic Fluid Description: Clear Placental Delivery Description: Spontaneous Placenta Disposition: [facility] Cord Vessel Description: 3 Vessels Cord Entanglement: - (around neck x 3 loose) Nuchal Cord Compression: Without compression A Gender: Male (Russ) (1 minute): 7 (5 minute): 9 Delayed Cord Clamping: No Complications Complications: none Admit VTE Documentation VTE Present on Admission: No VTE Mechan Device Prophylaxis: SCD's VTE Pharm Prophylaxis Ordered: No Reason Prophylaxis Not Ordered: Procedure Not Indicated
[2020-12-11] MEDS: Oxytocin 30 units/NS 500 ml 30 UNITS/500 ML IV.SOLN 167 UNITS IV (14:05)
--- NOTE | 2020-12-11 14:06 | FALS_PTH ---
PATIENT: TERRANCE MARCUS LOC: [facility] U#:[id number] AGE/SX: / ROOM: WP004 RE12/11/[address]: Dr. Selam Thomson MD : 1990 BED: 1 DIS: 12/13/2020 SPEC #: [id number] RECD: 12/11/20 15:00 STATUS: IRMA ECHEVERRIA #: [id number] SHIVANI: 12/11/20 14:[address]: Selam Thomson DEPT: SURGICAL PATHOLOGY RECD BY: Js Martinez ENTERED: 12/12/20 11:07 SP TYPE: FALL TUBES OTHR DR: Dr. Aydin Corado MD Tissues: Fallopian tube Procedures: Surgery Specimen Level II HEADER OPERATION: Tubal ligation PRE-OP DIAGNOSIS: Sterilization TISSUE SUBMITTED: Fallopian tubes MICROSCOPIC DIAGNOSIS Right fallopian tube, salpingectomy: Complete segment of fallopian tube with no pathologic change. Left fallopian tube, salpingectomy: Complete segment of fallopian tube with no pathologic change. AM:cassy 12/13/2020 COMMENT No fimbrial end is identified with the left fallopian tube. Clinical correlation is suggested. MICROSCOPIC DESCRIPTION Slides are reviewed. GROSS DESCRIPTION Received in fixative is one container labeled with the patient's name and designated bilateral fallopian tubes. The specimen consists of two fallopian tubes. The right fallopian tube has an average length of 7 cm and has an average diameter of 1 cm and normal fimbriated end. The other fallopian tube has an average length of 3.5 cm and has an average diameter of 1 cm and no fimbriated end identified. No mass lesions are identified. The specimen is submitted in two cassettes as follows: 1 - right fallopian tube (in store marketing representative sections), 2 - left fallopian tube, sectioned and totally submitted. / AM:cassy 12/12/20 TC:4 CPT: 70115 x2
[2020-12-11] MEDS: Ketorolac 30 MG/ML Syringe IV ×2 (14:27→20:19)
[2020-12-11 14:55] LABS: Pathology Specimen OB SEE PATHOLOGY REPORT
[2020-12-11] MEDS: Lactated Ringers 1,000 ML 100 ML IV (17:16)
[2020-12-11] MEDS: 0.9% Saline Lock 10 ML Syringe IV (20:19)
[2020-12-12 00:45] VITALS: BP 107/59; PULSE 67; RESP 16; TEMP 36.9; O2SAT 100
[2020-12-12] MEDS: Ketorolac 30 MG/ML Syringe IV ×2 (02:25→08:36)
[2020-12-12] MEDS: 0.9% Saline Lock 10 ML Syringe IV ×2 (02:25→08:37)
[2020-12-12] MEDS: Acetaminophen 500 MG Tablet 1000 MG PO ×4 (04:45→22:54)
[2020-12-12 04:47] VITALS: BP 99/47; PULSE 71; RESP 16; TEMP 36.3; O2SAT 100
[2020-12-12 06:12] LABS: Hematocrit 27.3 % (37-47); Hemoglobin 8.8 g/dL (12.0-15.0); Mean Corp Hgb Conc 32.2 g/dL (32-36); Mean Corpuscular Hgb 27.8 pg (27.0-32.0); Mean Corpuscular Volume 86.1 fL (81-99); Mean Platelet Vol. 10.8 fl (6.2-12.0); Platelet Count 211 K/mm3 (150-450); RBC Distribution Width CV 13.2 % (11.6-14.6); RBC Distribution Width SD 41.4 fl (35.1-43.9); Red Blood Count 3.17 M/mm3 (4.2-5.4); White Blood Count 10.4 K/mm3 (4.4-11.0)
[2020-12-12 08:40] VITALS: BP 125/70; PULSE 79; RESP 16; TEMP 36.4; O2SAT 99
[2020-12-12] MEDS: Senna/Docusate Sodium 1 Tablet PO (09:35)
[2020-12-12] MEDS: Ibuprofen 600 MG Tablet PO ×2 (13:19→17:40)
[2020-12-12 13:30] VITALS: BP 109/50; PULSE 74; RESP 16; TEMP 36.6; O2SAT 98
[2020-12-12] MEDS: oxyCODONE 5 MG Tablet PO (15:10)
--- NOTE | 2020-12-12 20:28 | PCM.PN.OB ---
Subjective Subjective Doing well per patient and nursing staff. Ambulating and taking PO without difficulty. Passing flatus. Limited urine output, gallardo out. Pain controlled. , services for assistance. Denies headache, visual changes, chest pain, shortness of breath, leg pain or increased bleeding. Lochia normal. Objective Data Objective Data Vital Signs: Vital Signs Temp Pulse Resp BP Pulse Ox 97.8 F 74 16 109/50 L 98 12/12/20 13:30 12/12/20 13:30 12/12/20 13:30 12/12/20 13:30 12/12/20 13:30 Oxygen Delivery Method Room Air Weight: 172 lb 6.424 oz Body Mass Index (BMI) 30.5 Intake & Output: Intake and Output for Last 24 Hours 12/10/20 12/11/20 12/12/20 23:59 23:59 23:59 Intake Total 3222.72 / 3222.72 Output Total 975 / 975 600 / 600 Balance 2247.72 / 2247.72 -600 / -600 Lab / Micro Data Result Diagrams: 12/12/20 06:00 Labs: Laboratory Results - last 24 hr 12/12/20 06:00: WBC 10.4, RBC 3.17 L, Hgb 8.8 L, Hct 27.3 L, MCV 86.1, MCH 27.8, MCHC 32.2, RDW Std Deviation 41.4, RDW Coeff of Chavez 13.2, Plt Count 211, MPV 10.8 Micro: Microbiology 12/11/20 10:05 Mucosa - Nose SARS-CoV-2 Antigen (Rapid) - Final ROS Constitutional Constitutional: Reports systems reviewed and no addt'l complaints, except as documented; Denies headache(s) Eyes Eyes: Denies acute decrease in peripheral vision, blurry vision or change in vision ENT HEENT: Reports systems reviewed and no addt'l complaints, except as documented Cardiovascular Cardiovascular: Denies chest pain or dizziness Respiratory/Chest Respiratory/Chest: Denies cough, dyspnea, dyspnea on exertion, shortness of breath at rest or shortness of breath with exertion Gastrointestinal Gastrointestinal: Denies abdominal pain, diarrhea, nausea or vomiting Genitourinary Genitourinary: Denies abdominal discomfort Musculoskeletal Musculoskeletal: Denies limited range of motion Integumentary Integumentary: Reports systems reviewed and no addt'l complaints, except as documented Neurologic Neurologic: Reports systems reviewed and no addt'l complaints, except as documented Psychiatric Psychiatric: Reports systems reviewed and no addt'l complaints, except as documented Endocrine Endocrinology: Reports systems reviewed and no addt'l complaints, except as documented Hematologic/Lymphatic Hematologic/Lymphatic: Reports systems reviewed and no addt'l complaints, except as documented Allergic/Immunologic Allergic/Immunologic: Reports systems reviewed and no addt'l complaints, except as documented Physical Exam Const alert and oriented x3 General Appearance: cooperative Orientation / Consciousness: awake, oriented to person, oriented to place and oriented to time Exam Limitations: no limitations HEENT normocephalic Head and Scalp: normal to inspection, normocephalic and atraumatic Face and Sinus: normal facial exam Eyes General Eye: normal appearance of both eyes Neck full ROM Chest Chest: symmetrical chest wall rise Resp normal respiratory effort and normal air movement Auscultation: clear to auscultation bilaterally Cardio regular rate, regular rhythm, S1 normal heart sound, S2 normal heart sound, no murmurs, no rub, no gallops and no clicks GI normal to inspection, nondistended, normoactive bowel sounds and non-tender GI Narrative: dressing dry and intact, fundus firm 2 below U appearance of the vagina normal Bladder / Kidney Exam: no CVA tenderness Back/Spine normal ROM Extremity normal to inspection and full ROM Extremity Narrative: Foreign's negative. Mild pedal edema, non pitting Skin no rashes or lesions noted Neuro oriented x3, CN's II-XII intact bilaterally and moves all extremities Sensorium / Orientation: awake, alert and oriented to person Motor Exam: clonus absent Deep Tendon Reflexes: Rt Patellar (L4): 2+ and Lt Patellar (L4): 2+ Assessment & Plan (1) Delivery outcome of liveborn : (2) Sterilization: (3) Delivery by section: PLAN: 1. Routine and postoperative care 2. Pain management 3. Hgb 8.8, asymptomatic. Repeat CBC in a.m. Vitals stable 4. P.o. hydrate, if no increased urine output will give 500 mL bolus. 5. Ambulation 6. Planning DC home tomorrow
[2020-12-12 21:20] VITALS: BP 106/56; PULSE 86; RESP 18; TEMP 36.6
[2020-12-13] MEDS: Ibuprofen 600 MG Tablet PO ×2 (00:02→06:12)
[2020-12-13 02:54] VITALS: BP 115/53; PULSE 81; RESP 18
[2020-12-13] MEDS: oxyCODONE 5 MG Tablet PO (05:07)
[2020-12-13] MEDS: Acetaminophen 500 MG Tablet 1000 MG PO (05:07)
[2020-12-13 05:27] LABS: Absolute Neutrophil Count 5.9 X10^3/uL (2.0-7.7); Basophil# 0.03 X10^3/uL; Basophil% 0.3 % (0-1); Eosinophil# 0.26 X10^3/uL; Hematocrit 26.6 % (37-47); Hemoglobin 8.3 g/dL (12.0-15.0); Lymphocyte % 22.9 % (19-41); Mean Corp Hgb Conc 31.2 g/dL (32-36); Mean Corpuscular Hgb 27.7 pg (27.0-32.0); Mean Corpuscular Volume 88.7 fL (81-99); Mean Platelet Vol. 10.2 fl (6.2-12.0); Monocyte# 0.51 X10^3/uL; Monocyte% 5.8 % (0-10); NRBC Flagged by Analyzer 0 % (0-5); Neutrophil # 5.89 X10^3/uL (2.7-7.7); Neutrophil % 67.7 % (47-70); Platelet Count 178 K/mm3 (150-450); RBC Distribution Width CV 13.8 % (11.6-14.6); RBC Distribution Width SD 44.9 fl (35.1-43.9); White Blood Count 8.7 K/mm3 (4.4-11.0)
[2020-12-13 08:20] VITALS: BP 116/57; PULSE 86; RESP 16; TEMP 36.8; O2SAT 98
--- NOTE | 2020-12-13 08:35 | PN.OBGYN_ITS ---
Subjective Subjective Pain well controlled, average lochia. Ambulating without lightheadedness or dizziness. No shortness of breath or palpitations. Positive flatus, no bowel movement. Breast-feeding is doing well. Has a tongue-tie but they plan on getting that clipped today Objective Data Objective Data Vital Signs: Vital Signs Temp Pulse Resp BP Pulse Ox 98.2 F 86 16 116/57 L 98 12/13/20 08:20 12/13/20 08:20 12/13/20 08:20 12/13/20 08:20 12/13/20 08:20 Oxygen Delivery Method Room Air Weight: 78.2 kg Body Mass Index (BMI) 30.5 Intake & Output: Intake and Output for Last 24 Hours 12/11/20 12/12/20 12/13/20 23:59 23:59 23:59 Intake Total 3222.72 / 3222.72 Output Total 975 / 975 600 / 600 Balance 2247.72 / 2247.72 -600 / -600 Lab / Micro Data Result Diagrams: 12/13/20 05:15 Labs: Laboratory Results - last 24 hr 12/13/20 05:15: WBC 8.7, RBC 3.00 L, Hgb 8.3 L, Hct 26.6 L, MCV 88.7, MCH 27.7, MCHC 31.2 L, RDW Std Deviation 44.9 H, RDW Coeff of Chavez 13.8, Plt Count 178, MPV 10.2, Immature Gran % (Auto) 0.300, Neut % (Auto) 67.7, Lymph % (Auto) 22.9, [place] % (Auto) 5.8, Eos % (Auto) 3.0, Baso % (Auto) 0.3, Absolute Neuts (auto) 5.9, Absolute Lymphs (auto) 2.00, Nucleated RBC % 0 Micro: Microbiology 12/11/20 10:05 Mucosa - Nose SARS-CoV-2 Antigen (Rapid) - Final Physical Exam Const alert General Appearance: cooperative GI GI Narrative: soft, moderate distention, fundus firm, appropriately tender. Abdominal bandage clean dry and intact Assessment & Plan (1) Delivery by section: COMMENT: Postoperative day #2 status post repeat section with bilateral salpingectomy for sterilization. Mild acute blood loss anemia, appropriate for blood loss during surgery. Patient is tolerating this well. Iron supplement with vitamins at home. Patient is ready for discharge home today with routine prescriptions and instructions.
--- NOTE | 2020-12-13 08:36 | DS.PCM_ITS ---
Providers Date of Admission: 12/11/20 Date of Discharge: 12/13/20 Primary Care Physician: Dr. Peterson Corado MD Reason For Visit: REPEAT C SECTION Diagnosis Discharge Diagnosis (1) Delivery by section: Status: Acute (2) Sterilization: Status: Acute Code(s): Z30.2 - Encounter for sterilization (3) Delivery outcome of liveborn : Status: Acute Code(s): Z37.9 - Outcome of delivery, unspecified (4) Acute blood loss anemia: Status: Acute Code(s): D62 - Acute posthemorrhagic anemia Medications at Discharge Home Medications 1 tab PO/SL DAILY 09/06/20 ferrous sulfate [iron] 325 mg PO QODAY #0 tab 12/13/20 ibuprofen 600 mg PO Q6H PRN PRN 20 Days #60 tablet 12/13/20 oxycodone 5 mg PO Q8H PRN PRN 3 Days #5 tablet 12/13/20 Hospital Course Operations - (Repeat section, hysterotomy made in the mid uterus. Bilateral salpingectomy for sterilization) Procedures None Summary of Care Provided Hospital Course: 30-year-old multigravida female admitted at 39 weeks for repeat section. She had a large amount of adhesions of the uterus to the anterior abdominal wall. The uterine incision was made transversely across the mid uterus more than the lower uterine segment because of these dense adhesions. Single liveborn was delivered. Bilateral salpingectomy was performed. Patient's postoperative course was unremarkable except for mild acute blood loss anemia appropriate for blood loss during surgery. By postoperative day #2, she was ambulating, urinating tolerating regular diet without difficulty. She was discharged home with routine prescriptions and instructions. Weight / BMI Weight Weight: 78.2 kg Body Mass Index (BMI) 30.5 ABG / Lab / Microbiology Data Result Diagrams: 12/13/20 05:15 Laboratory: Laboratory Results - last 24 hr 12/13/20 05:15: WBC 8.7, RBC 3.00 L, Hgb 8.3 L, Hct 26.6 L, MCV 88.7, MCH 27.7, MCHC 31.2 L, RDW Std Deviation 44.9 H, RDW Coeff of Chavez 13.8, Plt Count 178, MPV 10.2, Immature Gran % (Auto) 0.300, Neut % (Auto) 67.7, Lymph % (Auto) 22.9, [place] % (Auto) 5.8, Eos % (Auto) 3.0, Baso % (Auto) 0.3, Absolute Neuts (auto) 5.9, Absolute Lymphs (auto) 2.00, Nucleated RBC % 0 Microbiology: Microbiology 12/11/20 10:05 Mucosa - Nose SARS-CoV-2 Antigen (Rapid) - Final D/C Instructions Discharge Diet: No restrictions May resume sexual activity in: 4-6 weeks Lifting Restrictions: 20 pounds Additional Activity Instructions: Nothing in the vagina for 4-6 weeks. You may return to work/school in 6 weeks. Call your doctor if your incision/area has: Continuous Slow Oozing, Sudden Increased Bleeding, Increased Pain/ Swelling, Increased Redness and Foul Smelling Discharge Call your doctor if you observe: Fever of 101 or Higher and Using more than 1 pad per hour (for 2 hours) Suture Line Care: Avoid Pulling/Pushing and Avoid Pinching/Bending Cleanse incision/area with: Keep Dressing Clean & Dry Please Follow Up With: Selam Thomson MD When: Call to make an appointment for an incision check in 1-2 week [phone]. You will need a post check in 6 weeks. Meaningful Use Info Meaningful Use Diagnoses (Choose all that apply): None applicable Discharge Plan Admission Admit Date/Time: 12/11/20 09:20 Primary Reason for Your Visit: and tubal Attending Provider: Selam Thomson Primary Care Provider: Peterson Corado Instructions Patient Instructions: After a Discharge Orders/Prescriptions Prescriptions: New ibuprofen [ibuprofen] 600 MG tablet 600 mg PO Q6H PRN PRN (Reason: fever or pain) 20 Days Qty: 60 RF: 1 oxycodone 5 MG tablet 5 mg PO Q8H PRN PRN (Reason: severe pain) 3 Days Qty: 5 RF: 0 Continued 1 tab PO/SL DAILY RF: 0 Changed ferrous sulfate [iron] 325 mg (65 mg iron) Tablet 325 mg PO QODAY Qty: 0 RF: 0 Discontinued famotidine [Pepcid] 20 mg Tablet 20 mg PO DAILY RF: 0 aspirin [Aspir-81] 81 mg Tablet,Delayed Release (Dr/Ec) 81 mg PO DAILY RF: 0 Referrals / Follow Up: Peterson Corado MD [Primary Care Provider] - Disposition Disposition (needs filled in before D/C Order can be placed): Home, Self Care
== END 2020-12-13 10:00 | disposition home or self-care (01) | DRG 785 ==
PROVIDERS: Advanced Practice Midwife; Admitting Provider Obstetrics & Gynecology; PCP Family Medicine; Visit Provider Obstetrics & Gynecology
PROC: 10D00Z1 Extraction of Products of Conception, Low, Open Approach (ICD-10-PCS; CPT 59514; principal; 2020-12-11 11:45)
DX: O34.219 Maternal care for unspecified type scar from previous cesarean delivery (principal); Z30.2 Encounter for sterilization; O69.81X0 Labor and delivery complicated by cord around neck, without compression, not applicable or unspecified; Z20.822 Contact with and (suspected) exposure to COVID-19; Z3A.39 39 weeks gestation of pregnancy; Z37.0 Single live birth
CPT/HCPCS: 85025; 85027; 85461; 86850; 86870; 86900; 86901; 87426; 88302; 90384; 99218; J7120; A4216; G0378; J2405; J2790

== ENCOUNTER → 2021-02-25 | Outpatient (CLI) | payer OTHER, SELFPAY | END | disposition home or self-care (01) | LOC: LABSPEC 10:18 | PROVIDERS: PCP Family Medicine; Visit Provider Physician Assistant Surgical | DX: J02.9 Acute pharyngitis, unspecified (principal) | CPT/HCPCS: 87081 ==